=== PATIENT | male | born 1970 | race Hispanic/Latino ===

== ENCOUNTER 2018-08-21 15:07 | Emergency (ER) | payer SELFPAY ==
[~2018-08-21] VITALS: Ht 177.8 cm; Wt 93.2 kg
[~2018-08-21 15:07] MED LIST: NAPROSYN500 MG PO; NO MEDS; SEPTRA DS1 TAB PO
[2018-08-21 15:57] LABS: HEMOGLOBIN 14.3 g/dl (14.0-18.0); IMMATURE GRANULOCYTES 0.4 % (0.0-5.0); MEAN CELL VOLUME 94.4 fL CALC (80.0-100.0); MEAN CORPUSCULAR HGB 32.1 pG CALC (26.0-32.0); NEUT# 8.22 thou/uL (1.82-7.42); RED BLOOD COUNT 4.45 mill/uL (4.70-6.10); RED CELL DISTRI WIDTH 11.9 % (11.5-15.5)
[2018-08-21] MEDS ORDERED: CLEOCIN300 MG PO (16:21)
[2018-08-21] MEDS ORDERED: TORADOL PO (16:21)
[2018-08-21 17:33] VITALS: BP 150/92
== END 2018-08-21 18:04 | disposition home or self-care (01) | DRG 603 ==
LOC: ED 15:07
PROVIDERS: Emergency Medicine
PROC: 0H9KXZZ Drainage of Right Lower Leg Skin, External Approach (ICD-10-PCS; principal; 2018-08-21)
DX: L03.115 Cellulitis of right lower limb (principal); B95.62 Methicillin resistant Staphylococcus aureus infection as the cause of diseases classified elsewhere
CPT/HCPCS: J0131